=== PATIENT | male | born 1965 | race Caucasian/White ===

== ENCOUNTER 2019-09-12 07:19 | Day surgery (SDC) | payer MEDICAID ==
[~2019-09-12] VITALS: Ht 165.1 cm; Wt 81.6 kg
[2019-09-12] MEDS ORDERED: fentaNYL 0.05 MG/ML VIAL ONE (09:24)
[2019-09-12] MEDS ORDERED: LIDOCAINE 2% 100 MG/5 ML UJET TP ONE (09:24)
[2019-09-12] MEDS ORDERED: fentaNYL 0.05 MG/ML VIAL IVP ONE (09:55)
== END 2019-09-12 10:40 | disposition home or self-care (01) ==
LOC: MDS 07:19 → MMU 07:20 → MDS 10:40
PROVIDERS: ATTEND Internal Medicine Gastroenterology
DX: Z12.11 Encounter for screening for malignant neoplasm of colon (principal); K57.30 Diverticulosis of large intestine without perforation or abscess without bleeding; Z98.890 Other specified postprocedural states
CPT/HCPCS: 45378; J3010